=== PATIENT | female | born 1970 | race Caucasian/White ===

== ENCOUNTER 2017-08-07 06:56 | Day surgery (SDC) | payer BC, OTHER ==
[2017-08-07] MEDS ORDERED: FENTAnyl 50 MCG/ML VIAL (09:21)
[2017-08-07] MEDS ORDERED: LIDOCAINE 2% (SDV) 5 ML INJ (09:21)
[2017-08-07] MEDS ORDERED: MIDAZOLAM 1 MG/ML 2 ML INJ (09:21)
[2017-08-07] MEDS ORDERED: PROPOFOL 20 ML (09:21)
[2017-08-07] MEDS: BACITRACIN/POLYMYXIN 28.35 GM OINT TOP (09:25)
[2017-08-07] MEDS: BUPIVACAINE 0.5% (SDV) 30 ML INJ (09:26)
[2017-08-07] MEDS: POLYMYXIN/BACITRACIN 1L IRRIG (09:26)
[2017-08-07] MEDS: DEXAMETHASONE 4 MG/ML 1 ML INJ (09:26)
[2017-08-07] MEDS: LIDOCAINE 1% (MPF) 30 ML INJ (09:27)
[2017-08-07] MEDS ORDERED: EPHEDrine SULFATE 50 MG/5 ML SYG IV (09:30)
[2017-08-07] MEDS ORDERED: LABETALOL HCL 20MG INJ IV (09:30)
[2017-08-07] MEDS ORDERED: FENTAnyl 50 MCG/ML VIAL IV ×2 (09:30)
[2017-08-07] MEDS ORDERED: ACETAMINOPHEN 1000MG/100ML IV 100 ML (09:30)
[2017-08-07] MEDS ORDERED: ONDANSETRON 4 MG INJ IV (09:30)
[2017-08-07] MEDS ORDERED: HYDROmorphONE 0.5 MG/0.5 ML SYG IV (09:30)
[2017-08-07] MEDS ORDERED: CEFAZOLIN 1 GM INJ (09:30)
== END 2017-08-07 11:40 | disposition home or self-care (01) ==
LOC: SDS 06:56
DX: M20.41 Other hammer toe(s) (acquired), right foot (principal)
CPT/HCPCS: 28285; 84703

== ENCOUNTER 2018-02-10 23:50 | Emergency (ER) | payer BC ==
[2018-02-11] MEDS: IBUPROFEN 800 MG TAB PO (00:41)
[2018-02-11 00:44] LABS: ADD UMIC YES; UR AMORPHOUS CRYSTAL FEW /HPF (NONE SEEN); UR ASCORBIC ACID NEGATIVE (NEGATIVE); UR BACTERIA FEW /HPF (NONE SEEN); UR BILIRUBIN (Dip) NEGATIVE (NEGATIVE); UR BLOOD (Dip) 1+ mg/dL (NEGATIVE); UR CLARITY CLOUDY (CLEAR); UR COLOR YELLOW (YELLOW); UR GLUCOSE (Dip) NEGATIVE (NEGATIVE); UR KETONES (Dip) NEGATIVE (NEGATIVE); UR LEUKOCYTE ESTERASE (Dip) 3+ Leu/ul (NEGATIVE); UR NITRITE (Dip) NEGATIVE (NEGATIVE); UR RBC 11 /HPF (0-5); UR SPECIFIC GRAVITY (Dip) 1.012 (1.003-1.030); UR SQUAMOUS EPITHELIAL CELL FEW /HPF (FEW); UR TOTAL PROTEIN (Dip) NEGATIVE (NEGATIVE); UR UROBILINOGEN (Dip) NEGATIVE (NEGATIVE); UR WBC 31 /HPF (0-5)
[2018-02-11] MEDS: CEPHALEXIN 500 MG CAP PO (01:57)
== END 2018-02-11 02:00 | disposition home or self-care (01) ==
LOC: FTE 23:50
DX: N39.0 Urinary tract infection, site not specified (principal); R10.2 Pelvic and perineal pain
CPT/HCPCS: 81001; 84703; 99283